=== PATIENT | female | born 1985 | race Two or more races ===

== ENCOUNTER 2022-07-29 08:54 | Emergency (ER) | payer SELFPAY ==
[~2022-07-29] VITALS: Ht 160 cm; Wt 68.0 kg
[2022-07-29 11:06] LABS: Basophils # (auto) 0.1 10 ^3/uL (0-0.2); Eosinophils # (auto) 0 10 ^3/uL (0-0.8); Red Blood Cells 5.26 10^6/uL (4.0-5.20)
[2022-07-29 11:09] LABS: Basophils % (auto) 0.6 % (0.0-2.0); Eosinophils % (auto) 0.1 % (0.0-7.0); Hematocrit 41.8 % (36.0-46.0); Hemoglobin 13.6 g/dL (12.2-16.2); Lymphocytes # (auto) 2.4 10 ^3/uL (0.4-5.4); Lymphocytes % (auto) 15.2 % (10.0-50.0); Mean Corpuscular Hgb Conc. 32.6 g/dL (32.0-36.0); Mean Corpuscular Volume 79.6 fL (80.0-100.0); Monocytes # (auto) 0.7 10 ^3/uL (0-1.3); Monocytes % (auto) 4.7 % (0.0-12.0); Neutrophils # (auto) 12.5 10 ^3/uL (1.6-8.6); Neutrophils % (auto) 79.4 % (37.0-80.0); White Blood Cell 15.8 10^3/uL (4.4-10.8)
[2022-07-29 11:12] LABS: Potassium 4.1 mmol/L (3.5-5.1)
[2022-07-29 11:20] LABS: Albumin 3.5 g/dL (3.4-5.0); BUN/Creatinine Ratio 10.4; Bilirubin, Total 0.8 mg/dL (0.2-1.0); Total Protein 7.8 g/dL (6.4-8.2)
[2022-07-29] MEDS ORDERED: ONDANSETRON HCL 4 MG/2 ML VIAL IV ONE (13:45)
[2022-07-29] MEDS ORDERED: IBUPROFEN 600 MG TAB PO ONE (13:45)
[2022-07-29] MEDS ORDERED: SODIUM CHLORIDE 0.9% 1,000 ML IV ONE (13:45)
[2022-07-29 14:05] VITALS: BP 110/73
[2022-07-29 14:14] LABS: Urine Bacteria MOD /hpf (None Seen); Urine Blood Negative /uL (Negative); Urine Mucus MODERATE (None Seen); Urine Specific Gravity 1.033 (1.001-1.035); Urine WBC 7 /hpf (0 - 5)
[2022-07-29] MEDS ORDERED: CEPH-510 PO ×2 (14:43→14:53)
== END 2022-07-29 14:44 | disposition home or self-care (01) ==
LOC: ER 08:54
DX: G43.909 Migraine, unspecified, not intractable, without status migrainosus (principal); N39.0 Urinary tract infection, site not specified
CPT/HCPCS: 36415; 70450; 80053; 81001; 81025; 85025; 96361; 96374; 99284; J2405; J7030